=== PATIENT | female | born 1980 | race African-American/Black ===

== ENCOUNTER 2022-01-17 22:56 | Inpatient (IN) | payer MEDICAID ==
[~2022-01-17] VITALS: Ht 167.6 cm; Wt 117.0 kg
[2022-01-17 22:56] VITALS: BP 140/90
[2022-01-18] VITALS: BP 140/90
[2022-01-18] MEDS ORDERED: BISACODYL 5MG TABLET PO PRN (00:45)
[2022-01-18] MEDS ORDERED: GUAIFENESIN-DM 200MG-20MG/10ML UDC PO PRN (00:45)
[2022-01-18] MEDS ORDERED: ONDANSETRON HCL 4MG/2ML INJ IV PRN (00:45)
[2022-01-18] MEDS ORDERED: HYDRALAZINE 10 MG in SODIUM CHLORIDE 0.9% 49.5 ML IV PRN (00:45)
[2022-01-18] MEDS ORDERED: ALBUTEROL (0.083%) 2.5MG/3ML NEB HHN PRN (00:45)
[2022-01-18] MEDS: HYDROCODONE/ACETAMINOPHEN 10/325MG TABLET PO PRN ×3 (04:38→21:18)
[2022-01-18] MEDS: METHOCARBAMOL 750MG TABLET PO SCH ×3 (06:13→21:18)
[2022-01-18 07:45] VITALS: BP 110/67
[2022-01-18 07:45] LABS: BASOPHILS % 0.6 % (0.0-2.0); EOSINOPHILS % 2.7 % (0.0-5.0); HEMATOCRIT. 34.7 % (36.0-48.0); HEMOGLOBIN. 11.8 g/dL (12.0-16.0); LYMPHOCYTES % 16.4 % (20.0-50.0); MEAN CORPUSCULAR HEMOGLOBIN 30.1 pg (28.0-32.0); MEAN CORPUSCULAR VOLUME 88.2 fL (81.0-99.0); MEAN PLATELET VOLUME 7.4 fl (7.4-10.4); MONOCYTES % 6.6 % (2.0-8.0); NEUTROPHILS % 73.7 % (40.0-76.0); PLATELET 452 x1000/uL (130-400); RED BLOOD CELL COUNT 3.93 mill/uL (4.2-5.4); RED CELL DISTRIBUTION WIDTH 16.4 % (11.6-14.6)
[2022-01-18 07:53] LABS: CHLORIDE 104 mEq/L (98-107)
[2022-01-18] MEDS ORDERED: SENNOSIDES/DOCUSATE SOD 8.6/50MG TABLET PO PRN (09:00)
[2022-01-18] MEDS ORDERED: METHOCARBAMOL 750MG TABLET PO SCH (09:00)
[2022-01-18] MEDS ORDERED: ENOXAPARIN 40MG/0.4ML SYR SUBCUT SCH (09:00)
[2022-01-18] MEDS: METOPROLOL TARTRATE 25MG TABLET PO SCH ×2 (09:02→21:16)
[2022-01-18] MEDS: SENNOSIDES/DOCUSATE SOD 8.6/50MG TABLET PO SCH ×2 (09:02→21:18)
[2022-01-18] MEDS: FAMOTIDINE 20MG TABLET PO SCH ×2 (09:02→21:20)
[2022-01-18] MEDS: POLYETHYLENE GLYCOL 3350 (17GM) 1 DOSE PACK PO SCH (09:02)
[2022-01-18] MEDS: ENOXAPARIN 30MG/0.3ML SYR SUBCUT SCH ×2 (09:17→21:19)
[2022-01-18] MEDS ORDERED: POTASSIUM CHLORIDE 20MEQ TABLET SR PO NR (12:00)
[2022-01-18 20:00] VITALS: BP 114/64
[2022-01-19] MEDS: HYDROCODONE/ACETAMINOPHEN 10/325MG TABLET PO PRN ×4 (03:44→23:20)
[2022-01-19] MEDS: METHOCARBAMOL 750MG TABLET PO SCH ×3 (07:39→21:16)
[2022-01-19 07:59] LABS: BASOPHILS % 0.6 % (0.0-2.0); EOSINOPHILS % 3.4 % (0.0-5.0); HEMATOCRIT. 34.2 % (36.0-48.0); HEMOGLOBIN. 11.5 g/dL (12.0-16.0); MEAN CORPUSCULAR VOLUME 89.1 fL (81.0-99.0); MEAN PLATELET VOLUME 7.2 fl (7.4-10.4); MONOCYTES % 8.2 % (2.0-8.0); NEUTROPHILS % 59.8 % (40.0-76.0); PLATELET 417 x1000/uL (130-400); RED BLOOD CELL COUNT 3.84 mill/uL (4.2-5.4); RED CELL DISTRIBUTION WIDTH 16.5 % (11.6-14.6)
[2022-01-19 08:00] VITALS: BP 132/75
[2022-01-19] MEDS: POLYETHYLENE GLYCOL 3350 (17GM) 1 DOSE PACK PO SCH (09:00)
[2022-01-19 09:05] LABS: CHLORIDE 107 mEq/L (98-107)
[2022-01-19 09:16] LABS: FERRITIN 141 ng/mL (10-291)
[2022-01-19 09:25] LABS: TOTAL IRON BINDING CAPACITY 328 ug/dL (250-450)
[2022-01-19 09:29] LABS: FOLIC ACID (FOLATE) SERUM >20 ng/mL ng/mL (>5.38); VITAMIN B12 SERUM 427 pg/mL (211-911)
[2022-01-19] MEDS: FAMOTIDINE 20MG TABLET PO SCH ×2 (09:32→20:48)
[2022-01-19] MEDS: SENNOSIDES/DOCUSATE SOD 8.6/50MG TABLET PO SCH ×2 (09:32→20:49)
[2022-01-19] MEDS: ENOXAPARIN 30MG/0.3ML SYR SUBCUT SCH ×2 (09:33→20:47)
[2022-01-19] MEDS: METOPROLOL TARTRATE 25MG TABLET PO SCH ×2 (09:33→20:48)
[2022-01-19] MEDS: FERROUS SULFATE 325MG TABLET PO SCH ×2 (13:59→16:38)
[2022-01-19] MEDS: ASCORBIC ACID 500 MG TABLET PO SCH (13:59)
[2022-01-19] MEDS: CYANOCOBALAMIN 1000MCG/ML VIAL IM SCH (13:59)
[2022-01-19] MEDS: THIAMINE HCL 100MG TABLET PO SCH (13:59)
[2022-01-19] MEDS: FOLIC ACID 1MG TABLET PO SCH (14:00)
[2022-01-19 20:00] VITALS: BP 127/79
[2022-01-20 00:06] LABS: *AMPHETAMINES SCREEN URINE NEGATIVE (NEGATIVE); *BARBITURATES SCREEN URINE NEGATIVE (NEGATIVE); *BENZODIAZEPINES SCREEN URINE NEGATIVE (NEGATIVE); *COCAINE SCREEN URINE NEGATIVE (NEGATIVE); METHADONE URINE SCREEN NEGATIVE (NEGATIVE); PHENCYCLIDINE URINE SCREEN NEGATIVE (NEGATIVE)
[2022-01-20 00:26] LABS: CANNABINOID URINE SCREEN PRESUMTIVE POSITIVE (NEGATIVE); OPIATES URINE SCREEN PRESUMTIVE POSITIVE (NEGATIVE)
[2022-01-20] MEDS: METHOCARBAMOL 750MG TABLET PO SCH ×3 (05:35→21:35)
[2022-01-20] MEDS: HYDROCODONE/ACETAMINOPHEN 10/325MG TABLET PO PRN ×3 (06:50→19:14)
[2022-01-20 07:15] LABS: ETHANOL BLOOD < 10 mg/dL; T4 FREE 1.16 ng/dL (0.76-1.46)
[2022-01-20 08:00] VITALS: BP 114/69
[2022-01-20] MEDS: ASCORBIC ACID 500 MG TABLET PO SCH (10:16)
[2022-01-20] MEDS: THIAMINE HCL 100MG TABLET PO SCH (10:17)
[2022-01-20] MEDS: FOLIC ACID 1MG TABLET PO SCH (10:17)
[2022-01-20] MEDS: FERROUS SULFATE 325MG TABLET PO SCH ×3 (10:17→17:00)
[2022-01-20] MEDS: SENNOSIDES/DOCUSATE SOD 8.6/50MG TABLET PO SCH ×2 (10:17→21:41)
[2022-01-20] MEDS: FAMOTIDINE 20MG TABLET PO SCH ×2 (10:17→21:35)
[2022-01-20] MEDS: METOPROLOL TARTRATE 25MG TABLET PO SCH ×2 (10:18→21:38)
[2022-01-20] MEDS: CYANOCOBALAMIN 1000MCG/ML VIAL IM SCH (10:18)
[2022-01-20] MEDS: POLYETHYLENE GLYCOL 3350 (17GM) 1 DOSE PACK PO SCH (10:18)
[2022-01-20] MEDS: ENOXAPARIN 30MG/0.3ML SYR SUBCUT SCH ×2 (10:19→21:41)
[2022-01-20 20:00] VITALS: BP 128/83
[2022-01-21] MEDS: HYDROCODONE/ACETAMINOPHEN 10/325MG TABLET PO PRN ×4 (01:41→18:57)
[2022-01-21] MEDS: METHOCARBAMOL 750MG TABLET PO SCH ×3 (06:16→20:35)
[2022-01-21 08:00] VITALS: BP 114/64
[2022-01-21] MEDS: POLYETHYLENE GLYCOL 3350 (17GM) 1 DOSE PACK PO SCH (09:47)
[2022-01-21] MEDS: FERROUS SULFATE 325MG TABLET PO SCH ×3 (09:47→17:07)
[2022-01-21] MEDS: ENOXAPARIN 30MG/0.3ML SYR SUBCUT SCH ×2 (09:48→20:37)
[2022-01-21] MEDS: SENNOSIDES/DOCUSATE SOD 8.6/50MG TABLET PO SCH ×2 (09:48→20:35)
[2022-01-21] MEDS: THIAMINE HCL 100MG TABLET PO SCH (09:48)
[2022-01-21] MEDS: FAMOTIDINE 20MG TABLET PO SCH ×2 (09:48→20:35)
[2022-01-21] MEDS: FOLIC ACID 1MG TABLET PO SCH (09:48)
[2022-01-21] MEDS: ASCORBIC ACID 500 MG TABLET PO SCH (09:48)
[2022-01-21] MEDS: METOPROLOL TARTRATE 25MG TABLET PO SCH ×2 (09:49→20:36)
[2022-01-21] MEDS: CYANOCOBALAMIN 1000MCG/ML VIAL IM SCH (09:49)
[2022-01-21 10:01] LABS: BASOPHILS % 0.5 % (0.0-2.0); EOSINOPHILS % 1.6 % (0.0-5.0); HEMATOCRIT. 35.7 % (36.0-48.0); HEMOGLOBIN. 11.7 g/dL (12.0-16.0); LYMPHOCYTES % 20.1 % (20.0-50.0); MEAN CORPUSCULAR HEMOGLOBIN 29.2 pg (28.0-32.0); MONOCYTES % 7.3 % (2.0-8.0); NEUTROPHILS % 70.5 % (40.0-76.0); PLATELET 411 x1000/uL (130-400); RED BLOOD CELL COUNT 4.01 mill/uL (4.2-5.4); RED CELL DISTRIBUTION WIDTH 15.9 % (11.6-14.6)
[2022-01-21 10:29] LABS: CHLORIDE 105 mEq/L (98-107)
[2022-01-21 20:00] VITALS: BP 140/89
[2022-01-22] MEDS: HYDROCODONE/ACETAMINOPHEN 10/325MG TABLET PO PRN ×4 (01:24→18:38)
[2022-01-22] MEDS: METHOCARBAMOL 750MG TABLET PO SCH ×3 (06:26→21:25)
[2022-01-22 08:00] VITALS: BP 115/68
[2022-01-22] MEDS: POLYETHYLENE GLYCOL 3350 (17GM) 1 DOSE PACK PO SCH (09:00)
[2022-01-22] MEDS: FAMOTIDINE 20MG TABLET PO SCH ×2 (09:13→21:25)
[2022-01-22] MEDS: ASCORBIC ACID 500 MG TABLET PO SCH (09:13)
[2022-01-22] MEDS: SENNOSIDES/DOCUSATE SOD 8.6/50MG TABLET PO SCH ×2 (09:13→21:25)
[2022-01-22] MEDS: FERROUS SULFATE 325MG TABLET PO SCH ×3 (09:13→17:10)
[2022-01-22] MEDS: THIAMINE HCL 100MG TABLET PO SCH (09:13)
[2022-01-22] MEDS: FOLIC ACID 1MG TABLET PO SCH (09:13)
[2022-01-22] MEDS: METOPROLOL TARTRATE 25MG TABLET PO SCH ×2 (09:14→21:26)
[2022-01-22] MEDS: ENOXAPARIN 30MG/0.3ML SYR SUBCUT SCH ×2 (09:15→21:25)
[2022-01-22] MEDS: CYANOCOBALAMIN 1000MCG/ML VIAL IM SCH (09:15)
[2022-01-22] MEDS ORDERED: NALOXONE HCL 0.4MG/ML VIAL IV PRN (11:15)
[2022-01-22 20:00] VITALS: BP 124/83
[2022-01-23] MEDS: HYDROCODONE/ACETAMINOPHEN 10/325MG TABLET PO PRN ×4 (04:44→23:44)
[2022-01-23] MEDS: METHOCARBAMOL 750MG TABLET PO SCH ×3 (05:14→22:16)
[2022-01-23 08:00] VITALS: BP 131/77
[2022-01-23] MEDS: CYANOCOBALAMIN 1000MCG/ML VIAL IM SCH (08:07)
[2022-01-23] MEDS: FAMOTIDINE 20MG TABLET PO SCH ×2 (08:07→22:17)
[2022-01-23] MEDS: SENNOSIDES/DOCUSATE SOD 8.6/50MG TABLET PO SCH ×2 (08:07→22:17)
[2022-01-23] MEDS: FERROUS SULFATE 325MG TABLET PO SCH ×3 (08:08→17:00)
[2022-01-23] MEDS: ASCORBIC ACID 500 MG TABLET PO SCH (08:08)
[2022-01-23] MEDS: THIAMINE HCL 100MG TABLET PO SCH (08:08)
[2022-01-23] MEDS: FOLIC ACID 1MG TABLET PO SCH (08:08)
[2022-01-23] MEDS: ENOXAPARIN 30MG/0.3ML SYR SUBCUT SCH ×2 (08:09→22:17)
[2022-01-23] MEDS: POLYETHYLENE GLYCOL 3350 (17GM) 1 DOSE PACK PO SCH (08:09)
[2022-01-23] MEDS: METOPROLOL TARTRATE 25MG TABLET PO SCH ×2 (08:09→22:18)
[2022-01-23 20:00] VITALS: BP 116/71
[2022-01-24] MEDS: METHOCARBAMOL 750MG TABLET PO SCH ×3 (06:31→21:05)
[2022-01-24] MEDS: HYDROCODONE/ACETAMINOPHEN 10/325MG TABLET PO PRN ×4 (06:42→21:10)
[2022-01-24] MEDS: SENNOSIDES/DOCUSATE SOD 8.6/50MG TABLET PO SCH ×2 (08:30→20:11)
[2022-01-24] MEDS: THIAMINE HCL 100MG TABLET PO SCH (08:30)
[2022-01-24] MEDS: FOLIC ACID 1MG TABLET PO SCH (08:30)
[2022-01-24] MEDS: ASCORBIC ACID 500 MG TABLET PO SCH (08:30)
[2022-01-24] MEDS: ENOXAPARIN 30MG/0.3ML SYR SUBCUT SCH ×2 (08:30→20:08)
[2022-01-24] MEDS: FAMOTIDINE 20MG TABLET PO SCH ×2 (08:30→20:11)
[2022-01-24] MEDS: FERROUS SULFATE 325MG TABLET PO SCH ×3 (08:30→16:56)
[2022-01-24] MEDS: METOPROLOL TARTRATE 25MG TABLET PO SCH ×2 (08:31→20:09)
[2022-01-24] MEDS: POLYETHYLENE GLYCOL 3350 (17GM) 1 DOSE PACK PO SCH (08:34)
[2022-01-24 08:59] VITALS: BP 113/74
[2022-01-24 15:09] LABS: 25-HYDROXY VITAMIN D3 18 ng/mL (.)
[2022-01-24 20:00] VITALS: BP 120/80
[2022-01-25] MEDS: HYDROCODONE/ACETAMINOPHEN 10/325MG TABLET PO PRN ×4 (02:30→21:26)
[2022-01-25] MEDS: METHOCARBAMOL 750MG TABLET PO SCH ×3 (06:26→21:24)
[2022-01-25 08:00] VITALS: BP 110/70
[2022-01-25] MEDS: SENNOSIDES/DOCUSATE SOD 8.6/50MG TABLET PO SCH ×2 (08:08→21:00)
[2022-01-25] MEDS: POLYETHYLENE GLYCOL 3350 (17GM) 1 DOSE PACK PO SCH (08:08)
[2022-01-25] MEDS: FOLIC ACID 1MG TABLET PO SCH (08:52)
[2022-01-25] MEDS: METOPROLOL TARTRATE 25MG TABLET PO SCH ×2 (08:52→21:39)
[2022-01-25] MEDS: ASCORBIC ACID 500 MG TABLET PO SCH (08:52)
[2022-01-25] MEDS: FERROUS SULFATE 325MG TABLET PO SCH ×3 (08:53→17:19)
[2022-01-25] MEDS: THIAMINE HCL 100MG TABLET PO SCH (08:53)
[2022-01-25] MEDS: FAMOTIDINE 20MG TABLET PO SCH ×2 (08:53→21:26)
[2022-01-25] MEDS: ENOXAPARIN 30MG/0.3ML SYR SUBCUT SCH ×2 (08:54→21:27)
[2022-01-25] MEDS: ERGOCALCIFEROL 50000UNITS CAPSULE PO SCH (12:27)
[2022-01-25 20:00] VITALS: BP 131/79
[2022-01-26] MEDS: HYDROCODONE/ACETAMINOPHEN 10/325MG TABLET PO PRN ×3 (03:48→18:26)
[2022-01-26] MEDS: METHOCARBAMOL 750MG TABLET PO SCH ×3 (06:36→21:55)
[2022-01-26 08:00] VITALS: BP 123/72
[2022-01-26] MEDS: POLYETHYLENE GLYCOL 3350 (17GM) 1 DOSE PACK PO SCH (08:47)
[2022-01-26] MEDS: ENOXAPARIN 30MG/0.3ML SYR SUBCUT SCH ×2 (08:47→21:56)
[2022-01-26] MEDS: FOLIC ACID 1MG TABLET PO SCH (08:48)
[2022-01-26] MEDS: ASCORBIC ACID 500 MG TABLET PO SCH (08:48)
[2022-01-26] MEDS: METOPROLOL TARTRATE 25MG TABLET PO SCH ×2 (08:48→21:59)
[2022-01-26] MEDS: FAMOTIDINE 20MG TABLET PO SCH ×2 (08:48→21:55)
[2022-01-26] MEDS: FERROUS SULFATE 325MG TABLET PO SCH ×3 (08:48→16:48)
[2022-01-26] MEDS: THIAMINE HCL 100MG TABLET PO SCH (08:48)
[2022-01-26] MEDS: SENNOSIDES/DOCUSATE SOD 8.6/50MG TABLET PO SCH ×2 (08:48→21:55)
[2022-01-26 20:00] VITALS: BP 126/78
[2022-01-27] MEDS: HYDROCODONE/ACETAMINOPHEN 10/325MG TABLET PO PRN ×4 (01:28→21:10)
[2022-01-27] MEDS: METHOCARBAMOL 750MG TABLET PO SCH ×3 (06:26→21:10)
[2022-01-27 08:00] VITALS: BP 105/61
[2022-01-27] MEDS: SENNOSIDES/DOCUSATE SOD 8.6/50MG TABLET PO SCH ×2 (08:52→21:11)
[2022-01-27] MEDS: ASCORBIC ACID 500 MG TABLET PO SCH (08:52)
[2022-01-27] MEDS: THIAMINE HCL 100MG TABLET PO SCH (08:52)
[2022-01-27] MEDS: FOLIC ACID 1MG TABLET PO SCH (08:52)
[2022-01-27] MEDS: FAMOTIDINE 20MG TABLET PO SCH ×2 (08:52→21:10)
[2022-01-27] MEDS: FERROUS SULFATE 325MG TABLET PO SCH ×3 (08:52→17:34)
[2022-01-27] MEDS: POLYETHYLENE GLYCOL 3350 (17GM) 1 DOSE PACK PO SCH (08:52)
[2022-01-27] MEDS: METOPROLOL TARTRATE 25MG TABLET PO SCH ×2 (08:53→21:12)
[2022-01-27] MEDS: ENOXAPARIN 30MG/0.3ML SYR SUBCUT SCH ×2 (08:54→21:09)
[2022-01-27 20:00] VITALS: BP 129/83
[2022-01-28] MEDS: HYDROCODONE/ACETAMINOPHEN 10/325MG TABLET PO PRN ×4 (03:34→22:05)
[2022-01-28] MEDS: METHOCARBAMOL 750MG TABLET PO SCH ×3 (05:27→22:05)
[2022-01-28 07:17] LABS: CHLORIDE 106 mEq/L (98-107)
[2022-01-28 07:18] LABS: BASOPHILS % 0.6 % (0.0-2.0); EOSINOPHILS % 1.9 % (0.0-5.0); HEMATOCRIT. 35.1 % (36.0-48.0); HEMOGLOBIN. 11.5 g/dL (12.0-16.0); LYMPHOCYTES % 18.5 % (20.0-50.0); MEAN CORPUSCULAR VOLUME 88.3 fL (81.0-99.0); MEAN PLATELET VOLUME 7.4 fl (7.4-10.4); MONOCYTES % 7.4 % (2.0-8.0); NEUTROPHILS % 71.6 % (40.0-76.0); PLATELET 427 x1000/uL (130-400); RED BLOOD CELL COUNT 3.97 mill/uL (4.2-5.4); RED CELL DISTRIBUTION WIDTH 15.8 % (11.6-14.6)
[2022-01-28 08:00] VITALS: BP 129/77
[2022-01-28] MEDS: POLYETHYLENE GLYCOL 3350 (17GM) 1 DOSE PACK PO SCH (09:00)
[2022-01-28] MEDS: FAMOTIDINE 20MG TABLET PO SCH ×2 (09:25→20:23)
[2022-01-28] MEDS: FERROUS SULFATE 325MG TABLET PO SCH ×3 (09:25→17:00)
[2022-01-28] MEDS: THIAMINE HCL 100MG TABLET PO SCH (09:25)
[2022-01-28] MEDS: FOLIC ACID 1MG TABLET PO SCH (09:25)
[2022-01-28] MEDS: SENNOSIDES/DOCUSATE SOD 8.6/50MG TABLET PO SCH ×2 (09:25→20:23)
[2022-01-28] MEDS: METOPROLOL TARTRATE 25MG TABLET PO SCH ×2 (09:26→20:23)
[2022-01-28] MEDS: ENOXAPARIN 30MG/0.3ML SYR SUBCUT SCH ×2 (09:26→20:22)
[2022-01-28] MEDS: ASCORBIC ACID 500 MG TABLET PO SCH (09:28)
[2022-01-28] MEDS ORDERED: POTASSIUM CHLORIDE 20MEQ TABLET SR PO NR (09:30)
[2022-01-28 20:15] VITALS: BP 130/77
[2022-01-29] MEDS: METHOCARBAMOL 750MG TABLET PO SCH ×3 (06:09→21:48)
[2022-01-29] MEDS: HYDROCODONE/ACETAMINOPHEN 10/325MG TABLET PO PRN ×3 (06:10→18:39)
[2022-01-29 08:00] VITALS: BP 104/62
[2022-01-29] MEDS: METOPROLOL TARTRATE 25MG TABLET PO SCH ×2 (09:00→21:46)
[2022-01-29] MEDS: ENOXAPARIN 30MG/0.3ML SYR SUBCUT SCH ×2 (09:00→21:46)
[2022-01-29] MEDS: POLYETHYLENE GLYCOL 3350 (17GM) 1 DOSE PACK PO SCH (09:00)
[2022-01-29] MEDS: FERROUS SULFATE 325MG TABLET PO SCH ×3 (09:58→17:00)
[2022-01-29] MEDS: ASCORBIC ACID 500 MG TABLET PO SCH (09:58)
[2022-01-29] MEDS: THIAMINE HCL 100MG TABLET PO SCH (09:58)
[2022-01-29] MEDS: FAMOTIDINE 20MG TABLET PO SCH ×2 (09:58→21:46)
[2022-01-29] MEDS: SENNOSIDES/DOCUSATE SOD 8.6/50MG TABLET PO SCH ×2 (09:58→21:00)
[2022-01-29] MEDS: FOLIC ACID 1MG TABLET PO SCH (09:58)
[2022-01-29 20:00] VITALS: BP 118/76
[2022-01-30] MEDS: HYDROCODONE/ACETAMINOPHEN 10/325MG TABLET PO PRN ×4 (00:33→18:48)
[2022-01-30] MEDS: METHOCARBAMOL 750MG TABLET PO SCH ×3 (05:50→21:10)
[2022-01-30 06:38] LABS: BASOPHILS % 0.4 % (0.0-2.0); EOSINOPHILS % 2.6 % (0.0-5.0); HEMATOCRIT. 35.6 % (36.0-48.0); MEAN CORPUSCULAR HEMOGLOBIN 29.6 pg (28.0-32.0); MEAN CORPUSCULAR VOLUME 87.7 fL (81.0-99.0); MEAN PLATELET VOLUME 7.1 fl (7.4-10.4); MONOCYTES % 6.6 % (2.0-8.0); NEUTROPHILS % 63.4 % (40.0-76.0); PLATELET 470 x1000/uL (130-400); RED BLOOD CELL COUNT 4.06 mill/uL (4.2-5.4)
[2022-01-30 07:34] LABS: CHLORIDE 105 mEq/L (98-107)
[2022-01-30 08:00] VITALS: BP 109/74
[2022-01-30] MEDS: POLYETHYLENE GLYCOL 3350 (17GM) 1 DOSE PACK PO SCH (09:00)
[2022-01-30] MEDS: FERROUS SULFATE 325MG TABLET PO SCH ×3 (09:46→18:12)
[2022-01-30] MEDS: ASCORBIC ACID 500 MG TABLET PO SCH (09:46)
[2022-01-30] MEDS: FAMOTIDINE 20MG TABLET PO SCH ×2 (09:46→21:39)
[2022-01-30] MEDS: THIAMINE HCL 100MG TABLET PO SCH (09:46)
[2022-01-30] MEDS: SENNOSIDES/DOCUSATE SOD 8.6/50MG TABLET PO SCH ×2 (09:46→21:10)
[2022-01-30] MEDS: FOLIC ACID 1MG TABLET PO SCH (09:46)
[2022-01-30] MEDS: METOPROLOL TARTRATE 25MG TABLET PO SCH ×2 (09:46→21:10)
[2022-01-30] MEDS: ENOXAPARIN 30MG/0.3ML SYR SUBCUT SCH ×2 (09:47→21:11)
[2022-01-30] MEDS: MAGNESIUM HYDROXIDE 400MG/5ML 30ML UDC PO PRN (12:41)
[2022-01-30 20:36] VITALS: BP 141/93
[2022-01-31] MEDS: HYDROCODONE/ACETAMINOPHEN 10/325MG TABLET PO PRN ×4 (01:00→20:14)
[2022-01-31] MEDS: METHOCARBAMOL 750MG TABLET PO SCH ×3 (05:59→22:14)
[2022-01-31 07:53] VITALS: BP 130/87
[2022-01-31] MEDS: SENNOSIDES/DOCUSATE SOD 8.6/50MG TABLET PO SCH ×2 (08:58→20:10)
[2022-01-31] MEDS: FERROUS SULFATE 325MG TABLET PO SCH ×3 (08:58→16:35)
[2022-01-31] MEDS: FAMOTIDINE 20MG TABLET PO SCH ×2 (08:58→20:10)
[2022-01-31] MEDS: ASCORBIC ACID 500 MG TABLET PO SCH (08:58)
[2022-01-31] MEDS: FOLIC ACID 1MG TABLET PO SCH (08:58)
[2022-01-31] MEDS: THIAMINE HCL 100MG TABLET PO SCH (08:58)
[2022-01-31] MEDS: METOPROLOL TARTRATE 25MG TABLET PO SCH ×2 (08:59→20:09)
[2022-01-31] MEDS: POLYETHYLENE GLYCOL 3350 (17GM) 1 DOSE PACK PO SCH (08:59)
[2022-01-31] MEDS: ENOXAPARIN 30MG/0.3ML SYR SUBCUT SCH ×2 (09:00→20:10)
[2022-01-31 20:00] VITALS: BP 138/85
[2022-02-01] MEDS: HYDROCODONE/ACETAMINOPHEN 10/325MG TABLET PO PRN ×4 (02:14→23:01)
[2022-02-01] MEDS: MAGNESIUM HYDROXIDE 400MG/5ML 30ML UDC PO PRN (02:14)
[2022-02-01] MEDS: METHOCARBAMOL 750MG TABLET PO SCH ×3 (06:26→21:10)
[2022-02-01 08:00] VITALS: BP 133/83
[2022-02-01] MEDS: SENNOSIDES/DOCUSATE SOD 8.6/50MG TABLET PO SCH ×2 (09:00→21:00)
[2022-02-01] MEDS: POLYETHYLENE GLYCOL 3350 (17GM) 1 DOSE PACK PO SCH (09:00)
[2022-02-01] MEDS: ERGOCALCIFEROL 50000UNITS CAPSULE PO SCH (09:17)
[2022-02-01] MEDS: FOLIC ACID 1MG TABLET PO SCH (09:17)
[2022-02-01] MEDS: ASCORBIC ACID 500 MG TABLET PO SCH (09:17)
[2022-02-01] MEDS: THIAMINE HCL 100MG TABLET PO SCH (09:17)
[2022-02-01] MEDS: FERROUS SULFATE 325MG TABLET PO SCH ×3 (09:17→16:51)
[2022-02-01] MEDS: FAMOTIDINE 20MG TABLET PO SCH ×2 (09:18→21:09)
[2022-02-01] MEDS: METOPROLOL TARTRATE 25MG TABLET PO SCH ×2 (09:20→21:10)
[2022-02-01] MEDS: ENOXAPARIN 30MG/0.3ML SYR SUBCUT SCH ×2 (09:21→21:09)
[2022-02-01 20:00] VITALS: BP 117/73
[2022-02-02] MEDS: METHOCARBAMOL 750MG TABLET PO SCH ×3 (05:16→21:52)
[2022-02-02] MEDS: HYDROCODONE/ACETAMINOPHEN 10/325MG TABLET PO PRN ×3 (05:18→21:51)
[2022-02-02 08:00] VITALS: BP 134/85
[2022-02-02] MEDS: THIAMINE HCL 100MG TABLET PO SCH (08:40)
[2022-02-02] MEDS: ASCORBIC ACID 500 MG TABLET PO SCH (08:40)
[2022-02-02] MEDS: FAMOTIDINE 20MG TABLET PO SCH ×2 (08:40→21:54)
[2022-02-02] MEDS: FOLIC ACID 1MG TABLET PO SCH (08:40)
[2022-02-02] MEDS: FERROUS SULFATE 325MG TABLET PO SCH ×3 (08:40→17:53)
[2022-02-02] MEDS: ENOXAPARIN 30MG/0.3ML SYR SUBCUT SCH ×2 (08:41→21:54)
[2022-02-02] MEDS: METOPROLOL TARTRATE 25MG TABLET PO SCH ×2 (08:41→21:52)
[2022-02-02] MEDS: SENNOSIDES/DOCUSATE SOD 8.6/50MG TABLET PO SCH ×2 (08:42→21:00)
[2022-02-02] MEDS: POLYETHYLENE GLYCOL 3350 (17GM) 1 DOSE PACK PO SCH (08:42)
[2022-02-02] MEDS ORDERED: NALOXONE HCL 0.4MG/ML VIAL IV PRN (13:45)
[2022-02-02 20:00] VITALS: BP 138/91
[2022-02-03] MEDS: METHOCARBAMOL 750MG TABLET PO SCH ×3 (06:09→21:51)
[2022-02-03] MEDS: HYDROCODONE/ACETAMINOPHEN 10/325MG TABLET PO PRN ×3 (06:12→21:50)
[2022-02-03 08:00] VITALS: BP 132/82
[2022-02-03] MEDS: FOLIC ACID 1MG TABLET PO SCH (09:00)
[2022-02-03] MEDS: METOPROLOL TARTRATE 25MG TABLET PO SCH ×2 (09:00→20:49)
[2022-02-03] MEDS: FAMOTIDINE 20MG TABLET PO SCH ×2 (09:00→20:49)
[2022-02-03] MEDS: ASCORBIC ACID 500 MG TABLET PO SCH (09:00)
[2022-02-03] MEDS: SENNOSIDES/DOCUSATE SOD 8.6/50MG TABLET PO SCH ×2 (09:00→21:00)
[2022-02-03] MEDS: THIAMINE HCL 100MG TABLET PO SCH (09:00)
[2022-02-03] MEDS: FERROUS SULFATE 325MG TABLET PO SCH ×3 (09:00→17:16)
[2022-02-03] MEDS: POLYETHYLENE GLYCOL 3350 (17GM) 1 DOSE PACK PO SCH (09:00)
[2022-02-03] MEDS: ENOXAPARIN 30MG/0.3ML SYR SUBCUT SCH ×2 (09:00→21:50)
[2022-02-03 09:14] LABS: BASOPHILS % 0.7 % (0.0-2.0); EOSINOPHILS % 3.4 % (0.0-5.0); HEMATOCRIT. 36.1 % (36.0-48.0); HEMOGLOBIN. 12.2 g/dL (12.0-16.0); LYMPHOCYTES % 22.7 % (20.0-50.0); MEAN CORPUSCULAR HEMOGLOBIN 29.7 pg (28.0-32.0); MEAN CORPUSCULAR VOLUME 88.1 fL (81.0-99.0); MEAN PLATELET VOLUME 7.2 fl (7.4-10.4); MONOCYTES % 6.6 % (2.0-8.0); NEUTROPHILS % 66.6 % (40.0-76.0); PLATELET 523 x1000/uL (130-400); RED CELL DISTRIBUTION WIDTH 14.7 % (11.6-14.6)
[2022-02-03 09:15] LABS: CHLORIDE 104 mEq/L (98-107)
[2022-02-03] MEDS ORDERED: POTASSIUM CHLORIDE 20MEQ TABLET SR PO NR (11:00)
[2022-02-03 20:00] VITALS: BP 127/99
[2022-02-04] MEDS: HYDROCODONE/ACETAMINOPHEN 10/325MG TABLET PO PRN ×3 (06:36→22:23)
[2022-02-04] MEDS: METHOCARBAMOL 750MG TABLET PO SCH ×3 (06:42→22:23)
[2022-02-04 08:00] VITALS: BP 130/80
[2022-02-04] MEDS: POLYETHYLENE GLYCOL 3350 (17GM) 1 DOSE PACK PO SCH (09:00)
[2022-02-04] MEDS: ASCORBIC ACID 500 MG TABLET PO SCH (09:50)
[2022-02-04] MEDS: FOLIC ACID 1MG TABLET PO SCH (09:50)
[2022-02-04] MEDS: ENOXAPARIN 30MG/0.3ML SYR SUBCUT SCH ×2 (09:51→21:00)
[2022-02-04] MEDS: SENNOSIDES/DOCUSATE SOD 8.6/50MG TABLET PO SCH ×2 (09:51→22:23)
[2022-02-04] MEDS: METOPROLOL TARTRATE 25MG TABLET PO SCH ×2 (09:51→22:22)
[2022-02-04] MEDS: FERROUS SULFATE 325MG TABLET PO SCH ×3 (09:51→17:00)
[2022-02-04] MEDS: THIAMINE HCL 100MG TABLET PO SCH (09:51)
[2022-02-04] MEDS: FAMOTIDINE 20MG TABLET PO SCH ×2 (09:51→22:21)
[2022-02-04 13:22] LABS: CHLORIDE 105 mEq/L (98-107)
[2022-02-04] MEDS: LIDOCAINE 5% PATCH TOP SCH (13:27)
[2022-02-04 20:00] VITALS: BP 138/89
[2022-02-05 06:23] LABS: CHLORIDE 107 mEq/L (98-107)
[2022-02-05] MEDS: METHOCARBAMOL 750MG TABLET PO SCH ×2 (06:45→13:10)
[2022-02-05] MEDS: HYDROCODONE/ACETAMINOPHEN 10/325MG TABLET PO PRN ×2 (06:45→13:11)
[2022-02-05 08:00] VITALS: BP 129/90
[2022-02-05] MEDS: POLYETHYLENE GLYCOL 3350 (17GM) 1 DOSE PACK PO SCH (09:00)
[2022-02-05] MEDS: FAMOTIDINE 20MG TABLET PO SCH (09:13)
[2022-02-05] MEDS: FOLIC ACID 1MG TABLET PO SCH (09:13)
[2022-02-05] MEDS: THIAMINE HCL 100MG TABLET PO SCH (09:13)
[2022-02-05] MEDS: FERROUS SULFATE 325MG TABLET PO SCH ×2 (09:13→13:10)
[2022-02-05] MEDS: ASCORBIC ACID 500 MG TABLET PO SCH (09:13)
[2022-02-05] MEDS: METOPROLOL TARTRATE 25MG TABLET PO SCH (09:14)
[2022-02-05] MEDS: ENOXAPARIN 30MG/0.3ML SYR SUBCUT SCH (09:14)
[2022-02-05] MEDS: SENNOSIDES/DOCUSATE SOD 8.6/50MG TABLET PO SCH (09:16)
[2022-02-05] MEDS: LIDOCAINE 5% PATCH TOP SCH (09:16)
[2022-02-05] MEDS ORDERED: ALBUTEROL (0.083%) 2.5MG/3ML NEB HHN PRN (11:00)
[2022-02-05 11:31] VITALS: BP 129/90
[2022-02-05 13:11] VITALS: BP 129/90
== END 2022-02-05 15:15 | DRG 930 ==
PROVIDERS: ADMIT Physical Medicine & Rehabilitation Spinal Cord Injury Medicine; ATTEND Family Medicine Adult Medicine
PROC: 4A10X4Z Monitoring of Central Nervous Electrical Activity, External Approach (ICD-10-PCS; principal; 2022-01-21)
DX: S06.9X9A Unspecified intracranial injury with loss of consciousness of unspecified duration, initial encounter (principal); S32.401A Unspecified fracture of right acetabulum, initial encounter for closed fracture; G92.8 Other toxic encephalopathy; E27.8 Other specified disorders of adrenal gland; H49.01 Third [oculomotor] nerve palsy, right eye; E87.1 Hypo-osmolality and hyponatremia; N12 Tubulo-interstitial nephritis, not specified as acute or chronic; S32.059A Unspecified fracture of fifth lumbar vertebra, initial encounter for closed fracture; S72.001A Fracture of unspecified part of neck of right femur, initial encounter for closed fracture; S32.9XXA Fracture of unspecified parts of lumbosacral spine and pelvis, initial encounter for closed fracture; S37.041A Minor laceration of right kidney, initial encounter; F07.81 Postconcussional syndrome; S32.402A Unspecified fracture of left acetabulum, initial encounter for closed fracture; S42.302A Unspecified fracture of shaft of humerus, left arm, initial encounter for closed fracture; S32.591A Other specified fracture of right pubis, initial encounter for closed fracture; G83.9 Paralytic syndrome, unspecified; S22.42XA Multiple fractures of ribs, left side, initial encounter for closed fracture; S81.012A Laceration without foreign body, left knee, initial encounter; S51.812A Laceration without foreign body of left forearm, initial encounter; D64.9 Anemia, unspecified; E66.01 Morbid (severe) obesity due to excess calories; F15.10 Other stimulant abuse, uncomplicated; R26.9 Unspecified abnormalities of gait and mobility; F17.200 Nicotine dependence, unspecified, uncomplicated; M21.332 Wrist drop, left wrist; M48.061 Spinal stenosis, lumbar region without neurogenic claudication; F10.10 Alcohol abuse, uncomplicated; D72.828 Other elevated white blood cell count; E55.9 Vitamin D deficiency, unspecified; E61.1 Iron deficiency; E87.6 Hypokalemia; H53.2 Diplopia; Z56.0 Unemployment, unspecified; Z68.41 Body mass index [BMI] 40.0-44.9, adult; Z82.49 Family history of ischemic heart disease and other diseases of the circulatory system; V89.2XXA Person injured in unspecified motor-vehicle accident, traffic, initial encounter; Y93.89 Activity, other specified; Y92.89 Other specified places as the place of occurrence of the external cause; Y99.8 Other external cause status; Z71.3 Dietary counseling and surveillance; R53.81 Other malaise; E53.8 Deficiency of other specified B group vitamins
CPT/HCPCS: 36415; 70551; 72190; 73060; 80048; 80053; 80305; 80320; 82140; 82306; 82607; 82728; 82746; 83036; 83540; 83550; 84134; 84439; 84443; 84481; 85025; 87426; 92523; 93970; 97110; 97150; 97162; 97166; 97530; 97535; 97542; J1650; J3420; G0480